=== PATIENT | female | born 1960 | race Caucasian/White ===

== ENCOUNTER 2024-06-09 09:20 | Emergency (ER) | payer MEDICAID ==
[~2024-06-09] VITALS: Ht 144.8 cm; Wt 79.0 kg
[2024-06-09 09:27] VITALS: O2SAT 99
[2024-06-09] MEDS: LIDOCAINE HCL 1% 20ML VIAL INFIL ONE (12:04)
[2024-06-09] MEDS ORDERED: IBUP-1523 MT (13:02)
[2024-06-09] MEDS ORDERED: TOPUD MT (13:02)
[2024-06-09] MEDS ORDERED: AMOX600S39 MT (13:02)
[2024-06-09 13:17] VITALS: BP 152/97; PULSE 78; RESP 16; TEMP 36.66960; O2SAT 99
== END 2024-06-09 13:50 | disposition home or self-care (01) ==
LOC: ER 09:36
DX: L02.511 Cutaneous abscess of right hand (principal); E11.9 Type 2 diabetes mellitus without complications; I10 Essential (primary) hypertension
CPT/HCPCS: 10060; 99283; J3490; Z7610 ×4

== ENCOUNTER 2024-06-11 10:30 | Emergency (ER) | payer MEDICAID ==
[~2024-06-11] VITALS: Ht 160 cm; Wt 85.0 kg
[~2024-06-11 10:30] MED LIST: AMOX600S39 MT; IBUP-1523 MT; TOPUD MT
[2024-06-11 10:45] VITALS: TEMP 98.1; O2SAT 99
[2024-06-11] MEDS ORDERED: LIDOCAINE HCL/PF 1% 10 MG/ML 5ML VIAL INFIL ONE (11:00)
[2024-06-11] MEDS ORDERED: CEPH500T MT (12:09)
[2024-06-11 12:20] VITALS: BP 132/74; PULSE 72; RESP 16; O2SAT 99
== END 2024-06-11 12:20 | disposition home or self-care (01) ==
LOC: ER 10:30
DX: L02.511 Cutaneous abscess of right hand (principal); E11.9 Type 2 diabetes mellitus without complications; I10 Essential (primary) hypertension
CPT/HCPCS: 10060; 99283; J3490; Z7610